=== PATIENT | male | born 1950 | race Caucasian/White ===

== ENCOUNTER 2016-12-03 07:19 | Day surgery (SDC) | payer OTHER, BC ==
[2016-11-25 14:04] VITALS: BMI 32.9
[2016-12-03] MEDS ORDERED: DEXAMETHASONE SOD PHOSPHATE/PF 10 MG/ML SDV ONE (09:58)
[2016-12-03] MEDS ORDERED: ROPIVACAINE HCL 0.5% 30ML VIAL ONE (09:58)
[2016-12-03] MEDS ORDERED: MIDAZOLAM HCL 2 MG/2 ML SINGLE DOSE VIAL ONE ×2 (09:58→09:59)
--- NOTE | 2016-12-03 10:15 | HP ---
History & Physical Update - History History: No Change - Physical Physical: No Change - Assessment Assessment: No Change - Plan Plan: No Change
[2016-12-03] MEDS ORDERED: BUPIVACAINE HCL/EPINEPHRINE/PF 30 ML VIAL IJ ONE (11:39)
[2016-12-03] MEDS ORDERED: PROPOFOL 20 ML ONE ×2 (12:02)
[2016-12-03] MEDS ORDERED: ONDANSETRON 4 MG/2 ML VIAL ONE (12:06)
[2016-12-03] MEDS ORDERED: ceFAZolin SODIUM 1 GM VIAL ONE (12:06)
[2016-12-03] MEDS ORDERED: DEXAMETHASONE SOD PHOSPHATE 4 MG/1 ML VIAL ONE (12:06)
[2016-12-03] MEDS ORDERED: BUPIVACAINE 0.25% /EPI 1:200,000 10 ML VIAL INF ONE ×2 (12:15)
[2016-12-03] MEDS ORDERED: oxyCODONE HCL 10 MG SUSTAINED ACTING TABLET PO ONE (12:42)
[2016-12-03] MEDS ORDERED: oxyCODONE HCL 5 MG TABLET PO PRN ×3 (12:42→13:00)
--- NOTE | 2016-12-03 12:45 | DS ---
Physical Examination Vital Signs: Vital Signs Temperature 97.7 F 12/03/16 08:15 Pulse Rate 58 L 12/03/16 08:15 Respiratory Rate 18 12/03/16 08:15 Blood Pressure 132/52 12/03/16 08:15 O2 Sat by Pulse Oximetry (%) 98 12/03/16 08:15 Discharge Summary Reason For Visit: ROTATOR CUFF TEAR LEFT SHOULDER Condition: Good - Instructions Diet, Activity, Other Instructions: Post Operative Instructions: Shoulder Arthroscopy Dr Farhat Johnston 1. Pain following a Shoulder Arthroscopy is variable and can be significant. Some patients will have more pain than others. You have been provided with a prescription for medication that contains a narcotic. Feel free to take medications such as Ibuprofen or Naprosyn in addition to the pain medicine if you do not have any problems with the NSAID class of medications. 2. Apply ice to the shoulder for 15 minutes every hour. You may continue this for as many days as necessary. 3. You may find sleeping on an incline (reclining chair) to be more comfortable for the first few days. 4. You must remain in your sling at all times except when showering. The only exception to this is to allow you to stretch your elbow a few times a day to prevent your hand and forearm from swelling. 5. You are not to use your arm to reach for anything, lift anything or carry anything until instructed otherwise. 6. You may remove the bandages in 24 hours. You may shower at that point. 7. Do not put any creams or lotions on the incision. 8. Please call the office to schedule a visit to have your sutures removed. 9. If for any reason you believe you may have an infection or are concerned, please feel free to call me. I can be reached through our office number 24 hours a day. 10. Please call our office with any questions; we will review the surgical findings during your post-operative visit. Disposition: HOME - Home Medications Comprehensive Discharge Medication List: Ambulatory Orders Arginine [l-Arginine] 500 mg PO DAILY 11/25/16 Aspirin Coated [Ecotrin -] 162 mg PO HS 11/25/16 Atorvastatin Ca [Lipitor] 20 mg PO HS 11/25/16 Carvedilol [Coreg] 25 mg PO DAILY 11/25/16 Clopidogrel Bisulfate [Plavix -] 75 mg PO DAILY 11/25/16 Fluticasone Propionate [Flonase Allergy Relief] 9.9 ml NS BID 11/25/16 Magnesium 500 mg PO DAILY 11/25/16 Metformin HCl 500 mg PO BID 11/25/16 Montelukast Na [Singulair -] 10 mg PO HS 11/25/16 [place]-3S/Dha/Epa/Fish Oil [Fish Oil 1,200 mg Softgel] 1 cap PO BID 11/25/16 Psyllium Husk [Metamucil] 660 gm PO DAILY 11/25/16 Resveratrol 250 mg PO DAILY 11/25/16 Saw/Vit E/Sod Trinity/Lyc/Beta/Pyg [Prostate Health Caplet] 1 each PO DAILY Tamsulosin HCl 0.4 mg PO DAILY 11/25/16 Turmeric/Turmeric Root Extract [Turmeric] 900 mg PO DAILY 11/25/16 Ubidecarenone [Coq-10] 300 mg PO DAILY 11/25/16 Valsartan [Diovan] 160 mg PO DAILY 11/25/16 Vitamin A Palmitate [Vitamin A] 2,000 unit PO DAILY 11/25/16 Vitamin B Complex [B Complex] 1 each PO DAILY 11/25/16
--- NOTE | 2016-12-03 12:45 | OP ---
Operative Note - Note: Operative Date: 12/03/16 Pre-Operative Diagnosis: Left shoulder rotator cuff tear, partial biceps tear Operation: Left shoulder arthroscopy, rotator cuff repair, biceps tenodesis Post-Operative Diagnosis: Same as Pre-op (mayiks) Anesthesia: General Operative Report Dictated: Yes
[2016-12-03] MEDS ORDERED: LACTATED RINGERS SOLUTION 1,000 ML IV SCH (13:00)
[2016-12-03] MEDS ORDERED: ONDANSETRON 4 MG/2 ML VIAL IVPUSH PRN (13:00)
[2016-12-03] MEDS ORDERED: PROMETHAZINE HCL 25 MG/1 ML VIAL IVPUSH PRN (13:00)
[2016-12-03 14:27] VITALS: TEMP 97.5
[2016-12-03] MEDS ORDERED: oxyCODONE HCL 10 MG SUSTAINED ACTING TABLET ONE (14:33)
[2016-12-03 14:43] VITALS: BP 144/80; PULSE 77
--- NOTE | 2016-12-07 16:14 | SURG ---
Surgery Assistant Chief Of [employer] Note Assistant Chief Of Police: Alethea Matta PA-C Date of Service: 12/07/16 Diagnosis: Left shoulder rotator cuff tear, partial biceps tear Procedure: Left shoulder arthroscopy, rotator cuff repair, biceps tenodesis I was present for the entirety of the operative procedure. For further detail, please refer to operative report. Visit type - Case Type Case Type: Scheduled Admission - Emergency Emergency Visit: No - New patient This patient is new to me today: Yes Date on this admission: 12/03/16 - Critical Care Critical Care patient: No
== END 2016-12-03 15:15 | disposition home or self-care (01) ==
LOC: FASU 07:19
PROVIDERS: ATTEND Orthopaedic Surgery
PROC: 0RNK4ZZ Release Left Shoulder Joint, Percutaneous Endoscopic Approach (ICD-10-PCS; 2016-12-03)
PROC: 0LB24ZZ Excision of Left Shoulder Tendon, Percutaneous Endoscopic Approach (ICD-10-PCS; principal; 2016-12-03 11:56)
PROC: 0LS24ZZ Reposition Left Shoulder Tendon, Percutaneous Endoscopic Approach (ICD-10-PCS; 2016-12-03 11:56)
DX: M75.122 Complete rotator cuff tear or rupture of left shoulder, not specified as traumatic (principal); M75.22 Bicipital tendinitis, left shoulder
CPT/HCPCS: 94760